=== PATIENT | female | born 1955 | race Caucasian/White ===

== ENCOUNTER → 2017-02-04 | Outpatient (CLI) | payer OTHER, MEDICARE ==
[~2017-02-04] MED LIST: ASPI325T8 PO; IOHEXOL 240 MG/ML 50ML VIAL. PO ONE; IOHEXOL 300 MG/ML 100ML VIAL. IV ONE; LOSA25TA4 PO; NORE1TAB7 PO; TOPI25CA11 PO
--- NOTE | 2017-02-04 14:52 | KCIC ---
PQRS Compliance Statement: One or more of the following individualized dose reduction techniques were utilized for this examination: 1. Automated exposure control 2. Adjustment of the mA and/or kV according to patient size 3. Use of iterative reconstruction technique CT ABDOMEN AND PELVIS with IV CONTRAST: 02/04/2017. Indication: 61 years old Female. Left lower quadrant abdominal pain. Comparison: none. Technical: Multiple sequential axial CT images were obtained of the abdomen and pelvis from the lung bases to the ischial tuberosities following the uneventful IV administration of 95 cc Omnipaque 300. Oral contrast was was used. Findings: LUNG BASES: Unremarkable. ABDOMEN: LIVER: There is a simple left hepatic cyst measuring 3.1 x 2.7 cm. BILE DUCTS: Normal caliber. GALLBLADDER: No calcified gallstones. PANCREAS: Unremarkable. SPLEEN: Unremarkable. ADRENAL GLANDS: Within normal limits. KIDNEYS: Symmetric without hydronephrosis. BOWEL: There is circumferential wall thickening involving a 7 cm segment of sigmoid colon with associated pericolonic inflammatory changes centered in the region of diverticulosis compatible with acute diverticulitis. No peridiverticular abscess is identified. PERITONEUM: No ascites. No free intraperitoneal air. No fluid collection. VASCULATURE: There are mild atherosclerotic changes of the abdominal aorta without aneurysm. RETROPERITONEUM: Within normal limits. ABDOMINAL WALL: Within normal limits. PELVIS: PELVIC ORGANS: No pelvic masses. URINARY BLADDER: Within normal limits. LYMPH NODES: No lymphadenopathy in the abdomen or pelvis. BONES: There is right lateral listhesis of L4 on L5. There is anterolisthesis of L4 on L5 with retrolisthesis of L5 on S1. Advanced degenerative disc disease identified at L5-S1. There is at least moderate spinal canal stenosis at L4-L5. IMPRESSION: Findings are compatible with acute diverticulitis involving a 7 cm segment of sigmoid colon. No evidence for a peridiverticular abscess or free intraperitoneal air. Recommend correlation with endoscopy once symptoms have resolved. Critical results were discussed with Dr. Moe at 2:45 PM on 02/04/[address] Emery. Electronically signed by: Elzbieta Emery MD (02/04/2017 2:49 PM) [id number]
== END | disposition home or self-care (01) ==
LOC: KCIC CT 09:59
PROVIDERS: ATTEND Family Medicine
DX: K57.92 Diverticulitis of intestine, part unspecified, without perforation or abscess without bleeding (principal); I10 Essential (primary) hypertension; Z79.01 Long term (current) use of anticoagulants; Z87.891 Personal history of nicotine dependence
CPT/HCPCS: 74177; Q9966; Q9967

== ENCOUNTER → 2018-04-07 | Outpatient (CLI) | payer OTHER, MEDICARE ==
[~2018-04-07] MED LIST changes: -LOSA25TA4 PO; +LOSA25TA54 PO
--- NOTE | 2018-04-07 14:17 | KCIC ---
CT abdomen and pelvis without and with contrast 04/07/2018 CLINICAL INDICATION: Diverticulitis, left lower quadrant abdominal pain. COMPARISON: CT abdomen pelvis 02/04/2017, 06/07/2015. TECHNIQUE: Multiple CT images of the abdomen and pelvis were obtained without and following the intravenous and ministration 100 mL Omnipaque 300. *One or more of the following individualized dose reduction techniques were utilized for this examination: 1. Automated exposure control. 2. Adjustment of the mA and/or kV according to patient size. 3. Use of iterative reconstruction technique. FINDINGS: Bibasilar emphysema. There is a stable noncalcified pulmonary nodule in the posterior right lower lobe measuring 0.5 cm series 2/image 4. Liver is normal in size and morphology. There is a stable peripheral hepatic segment 4A cyst. Gallbladder unremarkable. No biliary ductal dilatation. Spleen, adrenal glands, pancreas and kidneys are unremarkable apart from a tiny subcentimeter inferior pole left renal cyst. Tortuous abdominal aorta which is normal in caliber with moderate aortoiliac calcified atheromatous disease. Major portal veins are patent. No retroperitoneal or mesenteric lymphadenopathy. Small and large bowel loops are normal in caliber without obstruction. Appendix is normal in appearance. Resolution of sigmoid diverticulitis. Mild distal colonic diverticulosis without acute diverticulitis. No abdominal free fluid. No pneumoperitoneum. Minimally distended unopacified urinary bladder unremarkable. Uterus and adnexa unremarkable. No iliac or inguinal lymphadenopathy. Grade 1 anterolisthesis L4 on L5 and grade 1 retrolisthesis L5 on S1. Lower lumbar spondylosis. IMPRESSION: 1. Resolution of diverticulitis. 2. No CT evidence of acute abdominal or pelvic process. 3. Bibasilar emphysema with right lower lobe noncalcified pulmonary nodule measuring 0.5 cm, indeterminate. Dedicated CT chest is recommended for further evaluation. Electronically signed by: Pedro Varela MD (04/07/2018 2:13 PM) [id number]
== END | disposition home or self-care (01) ==
LOC: KCIC CT 08:39
PROVIDERS: ATTEND Family Medicine
DX: K57.30 Diverticulosis of large intestine without perforation or abscess without bleeding (principal); M47.896 Other spondylosis, lumbar region; M43.17 Spondylolisthesis, lumbosacral region; M43.16 Spondylolisthesis, lumbar region; I70.0 Atherosclerosis of aorta; K76.89 Other specified diseases of liver; R91.1 Solitary pulmonary nodule
CPT/HCPCS: 74178; Q9966; Q9967

== ENCOUNTER → 2018-05-01 | Outpatient (CLI) | payer OTHER, MEDICARE ==
[~2018-05-01] MED LIST changes: -IOHEXOL 240 MG/ML 50ML VIAL. PO ONE; -IOHEXOL 300 MG/ML 100ML VIAL. IV ONE
--- NOTE | 2018-05-01 16:12 | KCIC ---
Examination: CT chest without contrast HISTORY: History of emphysema COMPARISON: None available TECHNIQUE: Axial CT images of chest were performed without contrast. Coronal and sagittal reformats are performed. Exposure: One or more of the following individualized dose reduction techniques were utilized for this examination: 1. Automated exposure control 2. Adjustment of the mA and/or kV according to patient size 3. Use of iterative reconstruction technique FINDINGS: The visualized thyroid gland grossly appears unremarkable. The central airways are patent. The ascending aorta measures 4.4 cm in transverse dimension. The heart size grossly appears unremarkable. Coronary artery calcifications identified. No radiologically significant mediastinal lymphadenopathy is identified. 6 mm nodule identified in the right middle lobe of the lung along the fissure. Moderate emphysematous changes identified in the bilateral lungs. There is a 6.5 mm nodule identified in the left lower lobe of the lung. 5 mm nodule identified in the right lower lobe of the lung. Cystic structure identified in the left lobe of the liver measuring 2.8 cm likely a cyst. There is a small nodule identified in the left adrenal gland measuring 1.4 cm and measuring -16 Hounsfield units likely left lipid rich adrenal adenoma. Mild aortic atherosclerosis. Mild degenerative changes thoracic spine. IMPRESSION: 1. A 6.5 mm nodule identified in the left lower lobe of the lung and 6 mm nodule identified in the right middle lobe of the lung and 5 mm nodule identified in the right lower lobe of the lung. Follow-up per Fleischner Society guidelines with CT in 3-6 months. 2. Moderate lung emphysematous changes 3. Ascending aortic aneurysmal change measuring 4.4 cm. 4. 1.4 cm lipid rich left adrenal adenoma. Electronically signed by: Antonio Harper MD (05/01/2018 2:32 PM) [place] [id number]
== END | disposition home or self-care (01) ==
LOC: KCIC CT 11:01
PROVIDERS: ATTEND Family Medicine
DX: J43.9 Emphysema, unspecified (principal); D35.02 Benign neoplasm of left adrenal gland; I71.2 Thoracic aortic aneurysm, without rupture; R91.1 Solitary pulmonary nodule; I70.0 Atherosclerosis of aorta; I25.10 Atherosclerotic heart disease of native coronary artery without angina pectoris; I10 Essential (primary) hypertension; Z87.891 Personal history of nicotine dependence; Z79.01 Long term (current) use of anticoagulants; Z86.69 Personal history of other diseases of the nervous system and sense organs
CPT/HCPCS: 71250

== ENCOUNTER → 2019-11-17 | Outpatient (CLI) | payer OTHER, MEDICARE ==
--- NOTE | 2019-11-17 17:10 | KCIC ---
Examination: CT CHEST WO CONTRAST History: Reason: COPD, SMOKER OF 43 YRS, EMPHYSEMA / Spl. Instructions: / History: Comparison/Correlation: 05/01/2018 CT chest without contrast, CT abdomen and pelvis with contrast 02/04/2017, CT abdomen and pelvis with contrast 06/07/2015 Findings: Axial images of the chest were obtained without contrast. Sagittal and coronal reformatted images were provided. Ascending thoracic aortic diameter 4.4 cm is present. Descending thoracic aorta diameter of 3.1 cm noted. Minimal atelectasis at the posterior lingula is unchanged. Left lower lobe pulmonary nodule measuring slightly less than 0.7 cm diameter is noncalcified and unchanged compared with prior exam. Focal thickening of the minor fissure anteriorly measuring up to 0.7 cm transverse is unchanged. No suspicious new pulmonary nodules or infiltrates described atelectasis involving the anterior right mid thoracic region noted. Diffuse centrilobular emphysema noted. There is no pleural or pericardial effusion. No enlarged thoracic lymph nodes. Left hepatic lobe cyst measuring 3.2 cm diameter is again identified with no change or need for follow-up. Diverticulosis of the colon is partially seen. Impression: Left lower lobe basilar pulmonary nodules present a similar upon appearance of multiple prior exams. No definite change in size evident. No suspicious new pulmonary nodules. Correlate with the patient's smoking history in determining initiation of low-dose annual lung cancer screening CT one year. Extensive centrilobular emphysema. Ascending thoracic aortic aneurysm or ectasia. This is stable compared to 05/01/2018. PQRS Compliance Statement: One or more of the following individualized dose reduction techniques were utilized for this examination: 1. Automated exposure control 2. Adjustment of the mA and/or kV according to patient size 3. Use of iterative reconstruction technique Electronically signed by: Oscar Acosta MD (11/17/2019 5:07 PM) [id number]
--- NOTE | 2019-11-22 19:08 | KCIC ---
Bilateral digital screening mammograms: Reason for examination: Routine screening. No previous exams for comparison. New baseline. Interpretation was made with the benefit of CAD. The skin and nipples show no abnormalities. No abnormal axillary lymph nodes are seen. The breast parenchyma is heterogeneously dense. (Breast density: Category C.) There are no dominant masses, suspicious calcifications or architectural distortion. Benign-appearing calcifications are present. Impression: No evidence of malignancy. Recommend routine screening. Your patient's mammogram demonstrates that she has dense breast tissue (breast density category C or D), which could hide abnormalities, and if she has other risk factors for breast cancer that have been identified, she might benefit from supplemental screening tests that may be suggested by you as her ordering physician. Dense breast tissue, in and of itself, is a relatively common condition. Therefore, this information is not provided to cause undue concern, but rather to raise your awareness and to promote discussion with your patient regarding the presence of other risk factors, in addition to dense breast tissue. Your patient's mammography results will be sent to her. BI-RAD Category 2: Benign. "Our facility is accredited by the [employer] Mammography Program." This patient's information has been entered into a reminder system for the patient to be notified with the results of her examination and a target date for the next mammogram. Electronically signed by: July Trinh MD (11/22/2019 7:05 PM) [id number]
== END | disposition home or self-care (01) ==
LOC: KCIC MAMMO 12:19
PROVIDERS: ATTEND Family Medicine
DX: Z12.31 Encounter for screening mammogram for malignant neoplasm of breast (principal); J43.2 Centrilobular emphysema; J92.9 Pleural plaque without asbestos; R91.8 Other nonspecific abnormal finding of lung field; K57.30 Diverticulosis of large intestine without perforation or abscess without bleeding; K76.89 Other specified diseases of liver; F17.210 Nicotine dependence, cigarettes, uncomplicated
CPT/HCPCS: 71250; 77067

== ENCOUNTER → 2021-08-17 | Outpatient (CLI) | payer MEDICARE ==
--- NOTE | 2021-08-17 14:13 | KCIC ---
INDICATION: 65 years of age asymptomatic female patient presents for screening mammography. No person al history of breast cancer. History of breast cancer in mother age 54. TECHNIQUE: Full field craniocaudal and mediolateral oblique images of both breasts were obtained usi ng digital technique with tomosynthesis and also analyzed with computer-aided detection software. COMPARISON: Prior mammographic imaging dating back to 11/17/2019. BREAST COMPOSITION: Category C: The breast tissue is heterogeneously dense, which could obscure detec tion of small masses. FINDINGS: No suspicious masses, microcalcifications or architectural distortion is present to suggest malignanc y in either breast. The visualized axillae are unremarkable. IMPRESSION: No mammographic evidence of malignancy. RECOMMENDATION: Annual screening mammography is recommended, unless clinically indicated sooner based on symptoms or change in physical exam. BIRADS 1: NEGATIVE This study was interpreted with the benefit of Computerized Aided Detection (CAD). ?Your patient's mammogram demonstrates that she has dense breast tissue (breast density category C or D), which could hide abnormalities, and if she has other risk factors for breast cancer that have be en identified, she might benefit from supplemental screening tests that may be suggested by you as he r ordering physician. Dense breast tissue, in and of itself, is a relatively common condition. Theref ore, this information is not provided to cause undue concern, but rather to raise your awareness and to promote discussion with your patient regarding the presence of other risk factors, in addition to dense breast tissue. Your patient's mammography results will be sent to her. Patient information is entered into the reminder system with a target due date for the next screening mammogram. Mammography is the most sensitive method for finding small breast cancers, but it does not detect the m all and is not a substitute for careful clinical examination. A negative mammogram does not negate a clinically suspicious finding and should not result in delay in biopsying a clinically suspicious a bnormality. "Our facility is accredited by the [employer] Mammography Program." Electronically signed by: Benny Iglesias DO (08/17/2021 2:10 PM) [id number]
--- NOTE | 2021-08-17 14:47 | KCIC ---
Bone Densitometry History: Reason: POST MENOPAUSAL / Spl. Instructions: / History: Findings: Bone Densitometry was performed with dual photon absorption of the lumbar spine and proximal femurs. Lumbar Spine: Bone density is 1.464 g/cm2 for L1-L4. T-score is 3.8. Z-score is 5.6. These values may be artificial ly elevated by degenerative osteophytes and sclerosis at L3-L4 on the left. Left proximal femur: Bone density is 0.884 g/cm2. T-score is -0.5. Z-score is 0.8. IMPRESSION: Normal bone mineral density in the lumbar spine and left hip. Of note, bone mineral density values in the lumbar spine may be artificially elevated due to sclerotic osteophytes at L3-L4. World Health Organization definition of osteoporosis and osteopenia for women: normal equal s T score at or above -1.0 standard deviations; osteopenia equals T score between -1.0 and -2.5 stand teddy deviations; osteoporosis equals T score at or below -2.5 standard deviations. Electronically signed by: Brandy Hampton MD (08/17/2021 2:44 PM) [id number]
== END ==
LOC: KCIC MAMMO 12:58
PROVIDERS: ATTEND Family Medicine
DX: Z12.31 Encounter for screening mammogram for malignant neoplasm of breast (principal); Z78.0 Asymptomatic menopausal state
CPT/HCPCS: 77063; 77067; 77080